=== PATIENT | female | born 1940 | race Caucasian/White ===

== ENCOUNTER → 2017-10-20 | Outpatient (CLI) | payer MEDICARE, OTHER ==
[~2017-10-20] MED LIST: ADULT LOW DOSE81 MG PO; ALLOPURINOL 10100 M1 PO; ASPIRIN EC81 M1; ASPIRIN81 M2 PO; BETIMOL10 ML; FISH OIL 1,0001 EAC5; FISH OIL 1,2001 EAC3 PO; FOLIC ACID 40400 MCG PO; GLIPIZIDE ER5 MG; GLUCOTROL5 MG PO; IRON325 PO; LIPITOR 20 MG T20 M1 PO; LIPITOR20 MG; LISINOPRIL-HCT1 EACH; LISINOPRIL10 MG PO; LISINOPRIL20 MG; LUTEIN20 MG; LUTEIN40 MG PO; MOBIC7.5 M1 PO; NAPROSYN500 MG PO; NORFLEX100 MG PO; OMEPRAZOLE40 MG PO; TIMOLOL MA0.5 %/5 M2 OPHTHALMIC; TRAVATAN 0.004%5 ML; ULTRAM 50MG TAB50 MG PO; VITAMIN B-12500 MCG PO; VITAMIN D1000 UNI1 PO; VITAMIN D31000 UNI2; XALATAN2.5 ML OPHTHALMIC
[2017-10-20 12:53] LABS: ABSOLUTE BASOPHILS 0.1 thou/uL (0.0-0.2); ABSOLUTE EOSINOPHILS 0.2 thou/uL (0.0-0.7); ABSOLUTE LYMPHOCYTES 2.3 thou/uL (0.8-5.3); ABSOLUTE MONOCYTES 0.7 thou/uL (0.0-1.2); ABSOLUTE NEUTROPHILS 6.2 thou/uL (1.6-8.1); BASOPHILS 0.6 %; EOSINOPHILS 2.3 %; HEMATOCRIT 40.4 % (37.0-47.0); HEMOGLOBIN 13.7 gm/dL (12.0-15.0); LYMPHOCYTES 24.4 %; MCH 32.2 pg (26.0-34.0); MCHC 33.8 g/dL (28.0-37.0); MCV 95.3 fL (80.0-100.0); MPV 8.8 fl. (7.2-11.1); NUCLEATED RBCS 0 /100WBC; PLATELET COUNT* 251 thou/uL (150-400); POLYS 65.7 %; RBC 4.24 mil/uL (4.20-5.00); WBC 9.4 thou/uL (4.0-11.0)
[2017-10-20 13:05] LABS: URINE BILIRUBIN NEGATIVE (Negative); URINE BLOOD NEGATIVE (Negative); URINE CLARITY CLEAR; URINE COLOR YELLOW; URINE GLUCOSE-RANDOM TRACE (Negative); URINE KETONES NEGATIVE (Negative); URINE LEUKOCYTES NEGATIVE (Negative); URINE NITRITE NEGATIVE (Negative); URINE PROTEIN NEGATIVE (Negative); URINE SPECIFIC GRAVITY 1.025 (1.005-1.030); URINE UROBILINOGEN 0.2 E.U./dl (0.2-1.0)
[2017-10-20 13:09] LABS: CALCIUM 9.4 mg/dL (8.5-10.1); CREATININE 1.5 mg/dL (0.6-1.3); PHOSPHORUS* 3.4 mg/dL (2.5-4.9); POTASSIUM 4.5 mmol/L (3.5-5.1)
[2017-10-20 22:09] LABS: eGFR IF AFRICAN AMERICAN 44 (>59)
[2017-10-21 09:09] LABS: IgA 460 mg/dL (64-422); IgG 1049 mg/dL (700-1600); IgM 162 mg/dL (26-217)
[2017-10-21 12:06] LABS: PARATHYROID HORMONE 84 pg/mL (15-65)
[2017-10-21 16:11] LABS: LAMBDA FREE LIGHT CHAINS 58.6 mg/L (5.7-26.3)
== END ==
LOC: M.ULTRA 11:25
PROVIDERS: Internal Medicine
DX: N18.3 Chronic kidney disease, stage 3 (moderate) (principal)

== ENCOUNTER 2018-07-27 05:44 | Emergency (ER) | payer MEDICARE, OTHER ==
[~2018-07-27] VITALS: Ht 160 cm; Wt 99.8 kg
[2018-07-27] MEDS ORDERED: MELOXICAM15 MG (06:01)
[2018-07-27 06:18] LABS: ABSOLUTE BASOPHILS 0.1 thou/uL (0.0-0.2); ABSOLUTE EOSINOPHILS 0.1 thou/uL (0.0-0.7); ABSOLUTE LYMPHOCYTES 1.4 thou/uL (0.8-5.3); ABSOLUTE MONOCYTES 0.5 thou/uL (0.0-1.2); ABSOLUTE NEUTROPHILS 8.4 thou/uL (1.6-8.1); BASOPHILS 0.7 %; EOSINOPHILS 0.6 %; HEMATOCRIT 40.1 % (37.0-47.0); HEMOGLOBIN 13.3 gm/dL (12.0-15.0); LYMPHOCYTES 13.5 %; MCH 32.1 pg (26.0-34.0); MCHC 33.1 g/dL (28.0-37.0); MCV 96.9 fL (80.0-100.0); MPV 9.3 fl. (7.2-11.1); NUCLEATED RBCS 0 /100WBC; PLATELET COUNT* 218 thou/uL (150-400); POLYS 80.2 %; RBC 4.14 mil/uL (4.20-5.00); RDW-CV 12.8 % (10.5-14.5); WBC 10.5 thou/uL (4.0-11.0)
[2018-07-27 06:25] LABS: ANION GAP 9 mmol/L (7-16); BUN 28 mg/dL (7-18); CALCIUM 9.4 mg/dL (8.5-10.1); CHLORIDE 105 mmol/L (98-107); CO2 27 mmol/L (21-32); CREATININE 1.4 mg/dL (0.6-1.3); GLUCOSE 174 mg/dL (70-99); SODIUM 141 mmol/L (136-145)
[2018-07-27 06:29] LABS: PROTIME 10.4 Seconds (9.20-11.50)
[2018-07-27 06:38] LABS: ALBUMIN 3.5 g/dL (3.4-5.0); ALKALINE PHOSPHATASE 100 U/L (46-116); NT-PRO BRAIN NAT PEPTIDE 236 pg/mL (<300); SGOT 47 U/L (15-37); SGPT 41 U/L (30-65); TOTAL BILIRUBIN 0.3 mg/dL (<0.1-1.0); TOTAL PROTEIN 7.4 g/dL (6.4-8.2); TROPONIN-I LEVEL <0.06 ng/mL (<0.06)
[2018-07-27 09:28] LABS: URINE BILIRUBIN NEGATIVE (Negative); URINE BLOOD TRACE (Negative); URINE CLARITY CLEAR; URINE COLOR YELLOW; URINE GLUCOSE-RANDOM NEGATIVE (Negative); URINE KETONES NEGATIVE (Negative); URINE LEUKOCYTES-REFLEX NEGATIVE (Negative); URINE NITRITE-REFLEX NEGATIVE (Negative); URINE PROTEIN NEGATIVE (Negative); URINE SPECIFIC GRAVITY 1.015 (1.005-1.030); URINE UROBILINOGEN 0.2 E.U./dl (0.2-1.0)
[2018-07-27] MEDS ORDERED: AUGMENTIN 875-1 EACH PO (10:15)
[2018-07-27 10:28] VITALS: BP 127/55
--- NOTE | 2018-07-28 11:24 | EKG ---
[place] [address] ELECTROCARDIOGRAM REPORT Name: JUNIE SCHWARTZ Room: [facility]#: [id number] Admission: 07/27/18 Attend Phys: Discharge: 07/27/18 Date of : 36 Report #: [id number] THIS REPORT FOR: //name// [facility] ED Test Date: 2018-07-27 Test Time: 06:00:19 Pat Name: JUNIE SCHWARTZ Department: Room: Gender: F Acoustic Intelligence Specialist: Ashley RICKETTS : 1940 Requested By: Eileen Monroe Order Number: [id number] MD: Rubén Deras Measurements Intervals [place] Rate: 92 P: 39 NC: 208 QRS: -48 QRSD: 107 T: 67 QT: 352 QTc: 436 Interpretive Statements Sinus rhythm Borderline prolonged NC interval 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 /EPI
== END 2018-07-27 10:29 | disposition home or self-care (01) ==
LOC: M.ERS 05:44
PROVIDERS: Emergency Medicine
DX: J98.01 Acute bronchospasm (principal); J18.9 Pneumonia, unspecified organism; R68.84 Jaw pain; E78.5 Hyperlipidemia, unspecified; Z90.721 Acquired absence of ovaries, unilateral; Z88.1 Allergy status to other antibiotic agents; Z98.890 Other specified postprocedural states

== ENCOUNTER → 2018-09-20 | Outpatient (CLI) | payer MEDICARE, OTHER ==
[~2018-09-20] MED LIST changes: +AUGMENTIN 875-1 EACH PO; +MELOXICAM15 MG
[2018-09-20 13:07] LABS: ABSOLUTE BASOPHILS 0.1 thou/uL (0.0-0.2); ABSOLUTE EOSINOPHILS 0.2 thou/uL (0.0-0.7); ABSOLUTE LYMPHOCYTES 1.7 thou/uL (0.8-5.3); ABSOLUTE MONOCYTES 0.5 thou/uL (0.0-1.2); BASOPHILS 1.2 %; EOSINOPHILS 1.9 %; HEMATOCRIT 38.1 % (37.0-47.0); HEMOGLOBIN 12.8 gm/dL (12.0-15.0); LYMPHOCYTES 19.5 %; MCH 32.1 pg (26.0-34.0); MCHC 33.6 g/dL (28.0-37.0); MCV 95.6 fL (80.0-100.0); MONOCYTES 6.4 %; MPV 8.7 fl. (7.2-11.1); NUCLEATED RBCS 0 /100WBC; PLATELET COUNT* 270 thou/uL (150-400); RBC 3.98 mil/uL (4.20-5.00); RDW-CV 13.1 % (10.5-14.5); WBC 8.5 thou/uL (4.0-11.0)
[2018-09-20 13:12] LABS: URINE BILIRUBIN NEGATIVE (Negative); URINE BLOOD NEGATIVE (Negative); URINE CLARITY CLEAR; URINE COLOR YELLOW; URINE GLUCOSE-RANDOM NEGATIVE (Negative); URINE KETONES NEGATIVE (Negative); URINE LEUKOCYTES-REFLEX 1+ (Negative); URINE NITRITE-REFLEX NEGATIVE (Negative); URINE PROTEIN NEGATIVE (Negative); URINE SPECIFIC GRAVITY >= 1.030 (1.005-1.030); URINE UROBILINOGEN 0.2 E.U./dl (0.2-1.0)
[2018-09-20 13:15] LABS: CALCIUM 9.6 mg/dL (8.5-10.1); CREATININE 1.4 mg/dL (0.6-1.3); MAGNESIUM 1.9 mg/dL (1.8-2.4)
[2018-09-20 13:22] LABS: CALCIUM 9.5 mg/dL (8.5-10.1); CREATININE 1.4 mg/dL (0.6-1.3); PHOSPHORUS* 3.2 mg/dL (2.5-4.9)
[2018-09-20 13:45] LABS: SQUAMOUS 4-10 Moderate /LPF (0-3)
[2018-09-20 13:46] LABS: WBC CLUMPS Few (None Seen)
[2018-09-20 13:47] LABS: BACTERIA-REFLEX None Seen /HPF (None Seen); CASTS None Seen /LPF (None Seen); CRYSTALS None Seen /LPF (None Seen); MUCUS None Seen strn/LPF (None Seen); URINE RBC None Seen /HPF (0-2); URINE WBC-REFLEX 0-5 Rare /HPF (0-5)
== END ==
LOC: M.LAB 12:34
PROVIDERS: Internal Medicine
DX: I12.9 Hypertensive chronic kidney disease with stage 1 through stage 4 chronic kidney disease, or unspecified chronic kidney disease (principal); E11.22 Type 2 diabetes mellitus with diabetic chronic kidney disease; N18.3 Chronic kidney disease, stage 3 (moderate); E78.5 Hyperlipidemia, unspecified; Z79.899 Other long term (current) drug therapy

== ENCOUNTER → 2018-10-01 | Outpatient (CLI) | payer MEDICARE, OTHER | LOC: M.RAD 11:28 | DX: J98.4 Other disorders of lung (principal) ==

== ENCOUNTER 2020-01-20 12:12 | Inpatient (IN) | payer MEDICARE, OTHER ==
[~2020-01-20] VITALS: Ht 157.5 cm; Wt 95.7 kg
[2020-01-20 12:23] VITALS: BP 203/91
[2020-01-20 13:11] LABS: ABSOLUTE EOSINOPHILS 0.2 thou/uL (0.0-0.7); ABSOLUTE LYMPHOCYTES 1.9 thou/uL (0.8-5.3); ABSOLUTE MONOCYTES 0.6 thou/uL (0.0-1.2); ABSOLUTE NEUTROPHILS 5.4 thou/uL (1.6-8.1); BASOPHILS 0.4 %; EOSINOPHILS 2.4 %; HEMATOCRIT 37.7 % (37.0-47.0); LYMPHOCYTES 23.2 %; MCH 32.3 pg (26.0-34.0); MCHC 34.4 g/dL (28.0-37.0); MCV 93.9 fL (80.0-100.0); MONOCYTES 7.3 %; MPV 8.6 fl. (7.2-11.1); NUCLEATED RBCS 0 /100WBC; PLATELET COUNT* 247 thou/uL (150-400); POLYS 66.7 %; RBC 4.02 mil/uL (4.20-5.00); WBC 8.2 thou/uL (4.0-11.0)
[2020-01-20 13:21] LABS: CALCIUM 9.1 mg/dL (8.5-10.1); CREATININE 1.5 mg/dL (0.6-1.3); POTASSIUM 3.9 mmol/L (3.5-5.1)
[2020-01-20 13:22] LABS: APTT 24.5 Seconds (25.0-31.3); PROTIME 10.7 Seconds (9.20-11.50)
[2020-01-20 13:25] LABS: ALBUMIN 3.5 g/dL (3.4-5.0); TOTAL BILIRUBIN 0.3 mg/dL (<0.1-1.0); TOTAL PROTEIN 7.7 g/dL (6.4-8.2)
--- NOTE | 2020-01-20 13:45 | EKG ---
[place] [address] ELECTROCARDIOGRAM REPORT Name: JUNIE SCHWARTZ Room: [address] M.R.#: [id number] Admission: 01/20/20 Attend Phys: Debbie Pelaez, Discharge: Date of : 36 Date of Service: 01/20/20 1245 Report #: [id number] THIS REPORT FOR: //name// [facility] ED Test Date: 2020-01-20 Test Time: 12:45:26 Pat Name: JUNIE SCHWARTZ Department: Room: [facility] Gender: F Tile Power Shear Operator: : 1940 Requested By: Cal Leavitt Order Number: [id number] MD: Rubén Deras Measurements Intervals [place] Rate: 90 P: 49 LA: 244 QRS: -57 QRSD: 109 T: 78 QT: 359 QTc: 440 Interpretive Statements Sinus rhythm Prolonged LA interval Left anterior fascicular block LVH with secondary repolarization abnormality late transition Compared to ECG 07/27/2018 06:00:19 no change Electronically Signed On 01-20-2020 13:44:31 CDT by Rubén Deras [email or web address] <ELECTRONICALLY SIGNED> By: Rubén Deras MD, FAC 01/20/20 1344 1245 1245 Rubén Deras MD, FAC /EPI
[2020-01-20 15:49] VITALS: BP 153/87
[2020-01-20 16:30] VITALS: BP 185/68
--- NOTE | 2020-01-20 18:33 | NUR ---
RECEIVED REPORT AND PT. ARRIVED TO ROOM 225 AT APPROX. 1610. PT. IS A/OX4, VSS, MONITOR PLACED TRACING SR. PT. DENIES CURRENT PAIN/NAUSEA/SOB. FULL ASSESSMENT AND ADMISSION PROCESS COMPLETED, REFER TO CHARTING. PT. DAUGHTER AT BEDSIDE AND REPORTS THAT HER MOTHER WAS SLURRING HER WORDS THIS MORNING LIKE SHE HAD "A FAT TONGUE". CURRENTLY PT. AND DAUGHTER BOTH AGREE PT. IS BACK TO BASELINE, NIH 0. PT. ORIENTED TO ROOM/PROCEDURE. CALL LIGHT IN REACH, WILL CONTINUE WITH PLAN OF CARE.
[2020-01-20 20:00] VITALS: BP 189/74
[2020-01-21] VITALS: BP 185/71
[2020-01-21 04:00] VITALS: BP 158/73
--- NOTE | 2020-01-21 05:58 | NUR ---
ASSESSMENTS COMPLETED AT BEDSIDE, PLEASE SEE CHARTING FOR DETAILS. MEDICATIONS ADMINISTERED PER MAR. HOURLY ROUNDING COMPLETED FOR SAFETY. CURRENTLY RESTING IN BED WITH CALL LIGHT WITHIN REACH. ALL CURRENT NEEDS HAVE BEEN MET.
[2020-01-21 09:30] LABS: CHOLESTEROL 157 mg/dL (<200); HDL CHOLESTEROL 41 mg/dL (>40); LDL CHOLESTEROL 97 mg/dL (<100); TC:HDL 3.8 Ratio (Not establshd); TRIGLYCERIDE 97 mg/dL (<150); VLDL 19 mg/dL (<40)
[2020-01-21 09:32] LABS: SERUM ASSESSMENT Clear
[2020-01-21 12:00] VITALS: BP 179/64
--- NOTE | 2020-01-21 12:58 | NUR ---
PT OFF UNIT TO MRI.
[2020-01-21 13:12] LABS: URINE BLOOD NEGATIVE (Negative); URINE CLARITY CLEAR; URINE COLOR YELLOW; URINE GLUCOSE-RANDOM NEGATIVE (Negative); URINE KETONES NEGATIVE (Negative); URINE LEUKOCYTES-REFLEX TRACE (Negative); URINE NITRITE-REFLEX NEGATIVE (Negative); URINE PROTEIN TRACE (Negative); URINE UROBILINOGEN 0.2 E.U./dl (0.2-1.0)
[2020-01-21 13:18] LABS: ICTOTEST (BILI CONFIRMATORY) Negative (Negative); URINE BILIRUBIN 1+ (Negative)
[2020-01-21 13:37] LABS: BACTERIA-REFLEX 1-9 Few /HPF (None Seen); CASTS None Seen /LPF (None Seen); CRYSTALS None Seen /LPF (None Seen); SQUAMOUS 0-3 Few /LPF (0-3); URINE RBC 0-2 Rare /HPF (0-2); URINE WBC-REFLEX 0-5 Rare /HPF (0-5)
--- NOTE | 2020-01-21 14:44 | NUR ---
PER PT AND RN REPORT, THERE WERE NO CURRENT SYMPTOMS OF SWALLOWING DEFICITS THAT WOULD WARRANT A CLINICAL BEDSIDE SWALLOW EVALUATION AT THIS TIME.
[2020-01-21 15:29] VITALS: BP 165/70
[2020-01-21 15:48] VITALS: BP 136/64
--- NOTE | 2020-01-21 16:08 | NUR ---
CONTACT DR. DODSON FOR ELEVATED BP AND STARTED PO METOPROLOL. CALLED DR. TURNER TO INFORM RESULTS OF HEAD MRI ARE AVAILABLE. PT TOLERATING GO PO AND UP IN CHAIR FOR MOST OF SHIFT. WILL CONTINUE TO ASSESS.
[2020-01-21 20:00] VITALS: BP 191/78
[2020-01-22] VITALS (8 sets, daily range): BP systolic 120–211; BP diastolic 59–90
--- NOTE | 2020-01-22 06:31 | NUR ---
PT HAD INCREASE TO SLURRED SPEECH AND RIGHT SIDE FACIAL DROOP. RECIEVED ORDERS FROM PHYSICIAN, SOME IMPROVEMENT NOTED. CONT FLUIDS AND HOLD BP MEDICATIONS TO KEEP BLOOD PRESSURE ELEVATED. CT AND DOPPLER ORDERED FOR THIS AM. PT IS SLEEPING IN BED WITH CALL LIGHT WITHIN REACH.
--- NOTE | 2020-01-22 19:02 | NUR ---
PT. AOX4, DENIES PAIN, SBP HIGH BUT NO MED INTERVENTION PERFORMED ORDERED FOR SBP <220. PT. WITH FAMILY MEMBERS THROUGHOUT DAY. WHEELED TO CT BY BED. HOURLY ROUNDING PERFORMED. CALL LIGHT AND PERSONAL BELONGINGS PLACED WITHIN REACH. PT. IN IN CHAIR, WATCHING TV, IN NO APPARENT DISTRESS AT THIS TIME.
[2020-01-23] VITALS (12 sets, daily range): BP systolic 125–221; BP diastolic 60–82
--- NOTE | 2020-01-23 07:11 | NUR ---
PT RESTED WELL THROUGHOUT HOURLY ROUNDS NO CHANGES NOTED THROUGHOUT HOURLY ROUNDS.
--- NOTE | 2020-01-23 10:10 | NUR ---
SPOKE WITH PT. AND DAUGHTER,SARAH, IN ROOM. PT.HAS TROUBLE FINDING SOME WORDS BUT GENERALLY IS ABLE TO BE UNDERSTOOD. SHE IS AWARE SHE IS HAVING A AUDRA TODAY. PT.SAID HER DAUGHTER,HERNANDO, LIVES WITH HER IN A HOUSE WHICH IS SPLIT LEVEL. PT.LIVES ON UPSTAIRS (MAIN LEVEL) HERNANDO LIVES ON LOWER LEVEL. DAUGHTER WORKS FROM HOME SO IS THERE ALL THE TIME. PT.IS INDEPENDENT AND ACTIVE. DROVER PRIOR TO COMING INTO THE HOSPITAL. SHE DOES ALL THE LAUNDRY AND DOES GOURMET COOKING FOR HER AND DAUGHTER. SHE IS ABLE TO GO UP AND DOWN STEPS. NO USE OF DME OR HX OF HH OR SNF. SHE WILL MOST LIKELY NEED HOME HEALTH ST AND NURSING. DAUGHTER IS REQUESTING A LIST OF HH AGENCIES AND NEUROLOGISTS. CM WILL PROVIDE.
--- NOTE | 2020-01-23 15:52 | NUR ---
VS CHARTED, A&OX4, NC@1L, UP AD TOMÁS, SLIGHT EXPRESSIVE APHASIA AND DELAYED CORRECT RESPONSE DUE TO TIA, ACCUCHECKS, HOURLY ROUNDING PERFORMED, POSSESSIONS AND CALL LIGHT WITHIN REACH.
--- NOTE | 2020-01-23 16:29 | NUR ---
Cardiac Rehab Stroke Education completed with receptive patient and daughter using the [employer] Education Folder. Educated on signs and symptoms of a stroke, when to call 911, types of strokes and risk factor modification. Both state understanding of education and questions answered to patient and daughter's satisfaction.
[2020-01-24 00:26] VITALS: BP 128/50
[2020-01-24 04:00] VITALS: BP 140/58
[2020-01-24 05:27] LABS: HEMOGLOBIN 12.6 gm/dL (12.0-15.0); MCHC 33.9 g/dL (28.0-37.0); MCV 94.3 fL (80.0-100.0); MPV 8.5 fl. (7.2-11.1); RBC 3.93 mil/uL (4.20-5.00); RDW-CV 13.2 % (10.5-14.5); WBC 8.9 thou/uL (4.0-11.0)
[2020-01-24 05:59] LABS: CALCIUM 8.7 mg/dL (8.5-10.1); CREATININE 1.4 mg/dL (0.6-1.3); POTASSIUM 3.8 mmol/L (3.5-5.1); TOTAL BILIRUBIN 0.3 mg/dL (<0.1-1.0); TOTAL PROTEIN 6.9 g/dL (6.4-8.2)
[2020-01-24 08:40] VITALS: BP 149/49
[2020-01-24] MEDS ORDERED: METOPROLOL TART25 MG PO (09:54)
[2020-01-24] MEDS ORDERED: LIPITOR40 MG PO (09:54)
[2020-01-24] MEDS ORDERED: GLUCOPHAGE500 MG PO (09:54)
[2020-01-24] MEDS ORDERED: CLOPIDOGREL75 MG PO (09:54)
[2020-01-24] MEDS ORDERED: LO-DOSE ASPIRIN81 M1 PO (09:54)
[2020-01-24 10:33] VITALS: BP 149/49
--- NOTE | 2020-01-24 12:00 | NUR ---
SPOKE WITH PT.AND DAUGHTER,SARAH. PT.TO DISCHARGE TODAY WITH HOME HEALTH. DAUGHTER AMD PT.[facility]SE [facility]. FAXED REFERAL AND DISCHARGE SUMMARY TO [facility]. SARAH WOULD LIKE TO BE CALLED MOTHER IS APHASIC. SHE WILL RELAY APPTS TO MOTHER. OTHER DAUGHTER WILL AT HOME WITH PT.AT ALL TIMES, WELL HER GRANDAUGHTER.
--- NOTE | 2020-01-24 12:39 | NUR ---
DISOCNTINUE IV AND TELE. PT AND DAUGHTER UNDERSTAND ALL FOLLOW UP ORDERS. PT DISCHARGED TO HOME WITH HOME HEALTH VIA PRIVATE VEHICLE.
--- NOTE | 2020-01-25 12:39 | CON ---
[address] [address] CONSULTATION Name: JUNIE SCHWARTZ Room: [address] IN .R.#: [id number] Admission: 01/21/20 Attend Phys: Debbie Pelaez MD Discharge: 01/24/20 Date of : 36 Report #: [id number] THIS REPORT FOR: //name// cc: Rubén Cody MD, David L. MD ~ THIS REPORT FOR: //name// CC: Rubén Pelaez DATE OF SERVICE: 01/20/2020 HISTORY OF PRESENT ILLNESS: This is an 79-year-old female patient who was seen by me for an episode of speech difficulty, she never noticed that, she says her family noticed. She does not know how long it lasted. She feels back to the baseline. She does not know why she is here. She never had any episode of TIA or stroke before. REVIEW OF SYSTEMS: Indicate that she did not have this kind of episode before. She received aspirin in the Emergency Room. She had hyperlipidemia, glaucoma, ovary removed, multiple pregnancies in the past and bladder suspension. She feels back to her baseline and is not having any new eye, ENT, cardiac, respiratory, GI, , musculoskeletal, constitutional, dermatological, hematological, psychiatric, throat or allergic symptom associated with present symptomatology. PAST MEDICAL HISTORY: Negative for this kind of episode. FAMILY HISTORY: Unremarkable. SOCIAL HISTORY: Also unremarkable. PHYSICAL EXAMINATION: The patient is hard of hearing, but she is alert. She is responsive. She is able to follow simple and complex command. Her memory and fund of knowledge appear unremarkable. Cranial nerve examination 2-12 looks unremarkable. Her reflexes are symmetrical. Her position sense is intact. Tone is symmetrical. She is reasonably strong in all 4 extremities. There is no cerebellar sign. I could not look at the patient's fundus. There is no carotid bruit. There is no meningeal sign. She is moderately obese individual. Her vision looks intact. She is well-developed. Pulses are palpable. Blood pressure is 157/87, respirations 23, pulse is . Cardiac examination is unremarkable. No respiratory difficulty or rhonchi was noticed. LABORATORY AND DIAGNOSTIC DATA: Lab indicated white count of 8.2. Her [place]FR [place] 33. [place] [address] CONSULTATION Name: JUNIE SCHWARTZ Paul Room: [address]#: [id number] Admission: 01/21/20 Attend Phys: Debbie Pelaez MD Discharge: 01/24/20 Date of : 36 Report #: [id number] IMPRESSION: The patient's clinical presentation is consistent with possible transient ischemic attack. She needs further workup. MRI is ordered in this patient. We will see what the MRI and MRA shows and the further workup will depend upon that. Thank you very much for this referral and I discussed all of it with this patient and she wants to follow this plan. <ELECTRONICALLY SIGNED> By: Kahlil Gray MD 01/25/20 1239 1825 [id number] Gray MD /nt
--- NOTE | 2020-02-01 09:00 | TEE ---
[place] [address] TRANSESOPHAGEAL ECHOCARDIOGRAM Name: JUNIE SCHWARTZ Paul Room: [address] IN [facility]#: [id number] Admission: 01/21/20 Attend Phys: Debbie Pelaez, Discharge: 01/24/20 Date of : 36 Date of Service: 01/23/20 1815 Report #: [id number] THIS REPORT FOR: cc: Rubén Cody MD, David L. MD [place], Michael J. MD [facility] ~ APPROVED REPORT Study performed: 01/23/2020 11:48:03 EXAM: Comprehensive 2D, Doppler, and color-flow Echocardiogram Patient Location: In-Patient Room #: 225 BSA: 1.97 HR: 64 bpm BP: 155/60 mmHg Other Information Study Quality: Good Indications CVA/TIA Echo Enhancing Agent Indication: Rule out Shunt Agent(s) / Amount(s) Used: Agitated Saline 10 cc Procedure After obtaining informed consent, patient underwent transesophageal echo in the [employer]. Type of Sedation : Conscious Sedation Sedation was administered by Manfred Infante RN. Sedation start time: 12:01 Case end Time: 12:20 Versed (3) Fentanyl (75) The AUDRA was performed without complications. Throughout the procedure, the blood pressure, pulse oximetry, cardiac rhythm, and rate were monitored. The patient tolerated the procedure without adverse effects. Recovery from conscious sedation was uneventful and vital signs were stable. Left Ventricle The left ventricle is normal size. There [place] [address] TRANSESOPHAGEAL ECHOCARDIOGRAM Name: JUNIE SCHWARTZ Room: [address]#: [id number] Admission: 01/21/20 Attend Phys: Debbie Pelaez, Discharge: 01/24/20 Date of : 36 Date of Service: 01/23/20 1815 Report #: [id number] wall thickness. The left ventricular systolic function is normal. LVEF is 55-60%. Right Ventricle The right ventricle is normal size. The right ventricular systolic function is normal. Atria The left atrium size is normal. There is no mass or thrombus suspected in the left atrium. Injection of bubbles documented no interatrial shunt. The right atrium size is normal. Aortic Valve Moderate aortic valve sclerosis. Mild aortic regurgitation. At least moderate aortic stenosis. Mitral Valve The mitral valve is normal in structure. Mild mitral regurgitation. No evidence of mitral valve stenosis. Tricuspid Valve The tricuspid valve is normal in structure. Trace tricuspid insufficiency. Pulmonic Valve Not well visualized. There is no pulmonic valvular regurgitation. Great Vessels The aortic root is normal in size. <Conclusion> The left ventricle is normal size. There is normal left ventricular wall thickness. The left ventricular systolic function is normal. LVEF is 55-60%. Moderate aortic valve sclerosis. Moderate aortic valve sclerosis. Mild aortic regurgitation. At least moderate aortic stenosis. Mild mitral regurgitation. Injection of bubbles documented no interatrial shunt. There is no mass or thrombus suspected in the left atrium. <ELECTRONICALLY SIGNED> By: Alexy Laurent MD, FACC 01/23/201814 14 14 Alexy Laurent MD, FACC /INF
== END 2020-01-24 12:30 | disposition home health service (06) | DRG 65 ==
LOC: M.ERS 12:12 → M.2W 13:23 → M.TBA-ER 13:23 → M.2W 13:23
PROVIDERS: Family Medicine; ADMIT Internal Medicine; ATTEND Internal Medicine
DX: I63.9 Cerebral infarction, unspecified (principal); J98.11 Atelectasis; I16.0 Hypertensive urgency; R47.81 Slurred speech; I12.9 Hypertensive chronic kidney disease with stage 1 through stage 4 chronic kidney disease, or unspecified chronic kidney disease; N18.2 Chronic kidney disease, stage 2 (mild); E11.22 Type 2 diabetes mellitus with diabetic chronic kidney disease; E78.5 Hyperlipidemia, unspecified; Z79.899 Other long term (current) drug therapy; Z79.84 Long term (current) use of oral hypoglycemic drugs; Z88.6 Allergy status to analgesic agent

== ENCOUNTER → 2020-02-28 | Outpatient (CLI) | payer MEDICARE, OTHER ==
[~2020-02-28] MED LIST changes: +CLOPIDOGREL75 MG PO; +GLUCOPHAGE500 MG PO; +LIPITOR40 MG PO; +LO-DOSE ASPIRIN81 M1 PO; +METOPROLOL TART25 MG PO
== END ==
LOC: M.MRI 10:56
PROVIDERS: ATTEND Psychiatry & Neurology Neurology
DX: I67.89 Other cerebrovascular disease (principal); I63.011 Cerebral infarction due to thrombosis of right vertebral artery; G93.89 Other specified disorders of brain